=== PATIENT | female | born 1965 | race Caucasian/White ===

== ENCOUNTER 2017-09-14 07:58 | Emergency (ER) | payer MEDICAID ==
[~2017-09-14] VITALS: Ht 157.5 cm; Wt 103.0 kg
[~2017-09-14 07:58] MED LIST: BACDS PO; DIAZ5TAB PO; NAPR-56 PO; PANT20TA3 PO; PER10325T PO
[2017-09-14 08:33] LABS: BASOPHILS % (AUTO) 0.7 % (0-1); EOSINOPHILS # (AUTO) 0.2 X10'3 (0-0.9); EOSINOPHILS % (AUTO) 2.5 % (0-6); HEMATOCRIT 31.4 % (35.0-45.0); HEMOGLOBIN 10.4 g/dl (12.0-16.0); LYMPHOCYTES # (AUTO) 1.8 X10'3 (1.1-4.8); LYMPHOCYTES % (AUTO) 28.6 % (21-51); MEAN CORPUSCULAR HEMOGLOBIN 28.7 PG (27.0-31.0); MEAN PLATELET VOLUME 7.5 FL (7.4-10.4); MONOCYTES # (AUTO) 0.6 X10'3 (0-0.9); MONOCYTES % (AUTO) 8.8 % (2-12); NEUTROPHILS # (AUTO) 3.8 X10'3 (1.8-7.7); NEUTROPHILS % (AUTO) 59.4 % (42-75); PLATELET COUNT 226 X10'3 (140-440); RED BLOOD COUNT 3.61 X10'6 (4.20-5.60); RED CELL DISTRIBUTION WIDTH 21.6 % (11.5-14.5); WHITE BLOOD COUNT 6.4 X10'3 (4.5-11.0)
[2017-09-14 08:45] LABS: ANISOCYTOSIS 3+; HYPOCHROMASIA 1+; PLATELET ESTIMATE NORMAL; POLYCHROMASIA 1+
[2017-09-14 08:46] LABS: STOMATOCYTES 1+
[2017-09-14 08:49] LABS: CLARITY,URINE Clear (Clear); GLUCOSE, URINE Negative (Neg); KETONES,URINE Negative (Neg); LEUKOCYTE ESTERASE ,URINE Negative (Neg); NITRITES, URINE Negative (Neg); OCCULT BLOOD,URINE Negative (Neg); PROTEIN,URINE Negative (Neg)
[2017-09-14 08:53] LABS: COLOR,URINE STRAW (Yellow); UA COLLECTION TYPE CLN CATCH MIDSTREAM
[2017-09-14 08:58] LABS: ALANINE AMINOTRANSFERASE 70 U/L (12-78); ALBUMIN 3.1 G/DL (3.4-5.0); ALBUMIN/GLOBULIN RATIO 0.7 (1.1-1.5); ALKALINE PHOSPHATASE 134 IU/L (46-116); ANION GAP 12 (8-16); ASPARTATE AMINO TRANSFERASE 93 U/L (10-37); BILIRUBIN,TOTAL 0.5 MG/DL (0.1-1.0); BLOOD UREA NITROGEN 11 MG/DL (7-18); BUN/CREATININE RATIO 14.5 (6.6-38.0); CALCIUM 8.7 MG/DL (8.5-10.1); CHLORIDE 103 MMOL/L (99-107); CREATININE 0.76 MG/DL (0.40-0.90); GLUCOSE 184 MG/DL (70-104); MAGNESIUM 1.9 MG/DL (1.5-2.4); POTASSIUM 3.8 MMOL/L (3.5-5.1); SODIUM 140 MMOL/L (135-145); TOTAL CARBON DIOXIDE 24.8 MMOL/L (24-32); TOTAL PROTEIN 7.6 G/DL (6.4-8.2); eGFR 80 ML/MIN
[2017-09-14] MEDS ORDERED: POTA20TA19 PO (10:16)
[2017-09-14] MEDS ORDERED: FURO-149 PO (10:16)
[2017-09-14 10:29] VITALS: BP 148/88
== END 2017-09-14 10:33 | disposition home or self-care (01) ==
LOC: ER 07:59
DX: R60.0 Localized edema (principal); R06.02 Shortness of breath; I10 Essential (primary) hypertension; M19.90 Unspecified osteoarthritis, unspecified site; I49.9 Cardiac arrhythmia, unspecified; F17.210 Nicotine dependence, cigarettes, uncomplicated; Z90.710 Acquired absence of both cervix and uterus; Z86.14 Personal history of Methicillin resistant Staphylococcus aureus infection; Z88.8 Allergy status to other drugs, medicaments and biological substances; Z79.899 Other long term (current) drug therapy
CPT/HCPCS: 36415; 71045; 80053; 81003; 83735; 83880; 84484; 85025; 85610; 99285

== ENCOUNTER 2017-10-11 08:53 | Inpatient (IN) | payer MEDICAID ==
[~2017-10-11] VITALS: Ht 5200 cm; Wt 90.9 kg
[~2017-10-11 08:53] MED LIST changes: +FURO-149 PO; +POTA20TA19 PO
[2017-10-11] MEDS: normal saline 1000ML IV soln IVB ONE ×2 (09:15→11:12)
[2017-10-11] MEDS ORDERED: ondansetron/PF 4mg/2ml inj IV ONE (09:15)
[2017-10-11 09:45] LABS: BASOPHILS % (AUTO) 0.3 % (0-1); EOSINOPHILS # (AUTO) 0.1 X10'3 (0-0.9); EOSINOPHILS % (AUTO) 0.9 % (0-6); HEMATOCRIT 33.3 % (35.0-45.0); HEMOGLOBIN 10.8 g/dl (12.0-16.0); LYMPHOCYTES # (AUTO) 0.9 X10'3 (1.1-4.8); LYMPHOCYTES % (AUTO) 12.4 % (21-51); MEAN CORPUSCULAR HEMOGLOBIN 28.1 PG (27.0-31.0); MEAN CORPUSCULAR HGB CONC 32.5 % (33.0-36.5); MEAN CORPUSCULAR VOLUME 86.5 FL (78-98); MONOCYTES # (AUTO) 0.5 X10'3 (0-0.9); MONOCYTES % (AUTO) 6.6 % (2-12); NEUTROPHILS % (AUTO) 79.8 % (42-75); PLATELET COUNT 183 X10'3 (140-440); RED BLOOD COUNT 3.85 X10'6 (4.20-5.60); RED CELL DISTRIBUTION WIDTH 23.1 % (11.5-14.5); WHITE BLOOD COUNT 7.5 X10'3 (4.5-11.0)
[2017-10-11 09:49] LABS: CLARITY,URINE CLEAR (Clear); COLOR,URINE YELLOW (Yellow); GLUCOSE, URINE 100 mg/dl (Neg); KETONES,URINE NEGATIVE (Neg); LEUKOCYTE ESTERASE ,URINE NEGATIVE (Neg); NITRITES, URINE NEGATIVE (Neg); OCCULT BLOOD,URINE NEGATIVE (Neg); PROTEIN,URINE TRACE mg/dl (Neg)
[2017-10-11 09:53] LABS: UA COLLECTION TYPE CLN CATCH MIDSTREAM
[2017-10-11 09:55] LABS: BACTERIA,URINE 2+ /HPF (Neg); MUCUS STRANDS FEW /LPF (Neg); RBC,URINE NONE SEEN /HPF (0-2); SQUAMOUS EPITHELIAL CELL,UR MANY /LPF (FEW); WBC,URINE NONE SEEN /HPF (0-4)
[2017-10-11 10:00] LABS: PARTIAL THROMBOPLASTIN TIME 23 SECONDS (22-32); PROTHROMBIN TIME 10.5 SECONDS (9.0-12.0)
[2017-10-11 10:09] LABS: BETA HCG,QUANTITATIVE < 1.0 mIU/ml; LIPASE 653 U/L (73-393)
[2017-10-11] MEDS ORDERED: normal saline 1000ML IV soln IVB ONE (10:40)
[2017-10-11 12:12] LABS: ALANINE AMINOTRANSFERASE 73 U/L (12-78); ALBUMIN 3.3 G/DL (3.4-5.0); ALBUMIN/GLOBULIN RATIO 0.7 (1.1-1.5); ALKALINE PHOSPHATASE 165 IU/L (46-116); ANION GAP 23 (8-16); ASPARTATE AMINO TRANSFERASE 125 U/L (10-37); BILIRUBIN,TOTAL 0.5 MG/DL (0.1-1.0); BLOOD UREA NITROGEN 13 MG/DL (7-18); BUN/CREATININE RATIO 12.6 (6.6-38.0); CALCIUM 9.2 MG/DL (8.5-10.1); CHLORIDE 97 MMOL/L (99-107); CREATININE 1.03 MG/DL (0.40-0.90); GLUCOSE 349 MG/DL (70-104); POTASSIUM 3.1 MMOL/L (3.5-5.1); SODIUM 139 MMOL/L (135-145); TOTAL CARBON DIOXIDE 19.4 MMOL/L (24-32); TOTAL PROTEIN 7.9 G/DL (6.4-8.2); eGFR 56 ML/MIN
[2017-10-11] MEDS: POTASSIUM CL IV SCH ×2 (13:23→20:07)
[2017-10-11] MEDS: SODIUM CHLORIDE 0.45% IV SCH ×2 (13:23→20:07)
[2017-10-11] MEDS ORDERED: bisacodyl 10mg suppository rectal RC PRN (13:25)
[2017-10-11] MEDS ORDERED: magnesium hydroxide 30ml (MOM) UD suspension PO PRN (13:25)
[2017-10-11] MEDS ORDERED: potassium Cl 20 mEq SR tablet PO PRN (13:25)
[2017-10-11] MEDS ORDERED: magnesium 2GM in 50ml NS 50 ML IV PRN (13:25)
[2017-10-11] MEDS ORDERED: magnesium 4gm in 100ml NS 100 ML IV PRN (13:25)
[2017-10-11] MEDS ORDERED: potassium Cl 40MEQ/NS 500ml 500 ML IV PRN ×2 (13:25)
[2017-10-11] MEDS ORDERED: mag hydrox/Alum hydrox/simeth 30ml oral suspension PO PRN (13:25)
[2017-10-11] MEDS ORDERED: FURO40TA4 (14:00)
[2017-10-11] MEDS ORDERED: methadone 10mg tablet PO SCH ×2 (14:35→15:02)
[2017-10-11 14:40] LABS: URINE AMPHETAMINE SCREEN NEGATIVE (Neg); URINE BARBITUATE SCREEN NEGATIVE (Neg); URINE BENZODIAZEPINES SCREEN POSITIVE (Neg); URINE CANNABINOID SCREEN NEGATIVE (Neg); URINE COCAINE SCREEN NEGATIVE (Neg); URINE METHADONE SCREEN POSITIVE (Neg); URINE OPIATE SCREEN NEGATIVE (Neg); URINE PHENCYCLIDINE SCREEN NEGATIVE (Neg)
[2017-10-11] MEDS ORDERED: glucagon, human recombinant 1mg kit SUBCUT PRN (14:45)
[2017-10-11] MEDS ORDERED: insulin Lispro (HumaLOG) vial - multi-dose SQ SCH (14:45)
[2017-10-11] MEDS ORDERED: dextrose 50%-water 50ml dispensing syringe IV PRN ×2 (14:45)
[2017-10-11] MEDS ORDERED: dextrose ORAL solution 15 GM/59 ML bottle PO PRN ×2 (14:45)
[2017-10-11] MEDS ORDERED: MESSAGE TO PHARMACY PO ONE (14:45)
[2017-10-11 15:06] LABS: CREATINE KINASE 105 U/L (26-192); ETHANOL 0.291 GM/DL (0.0-0.010); MAGNESIUM 1.6 MG/DL (1.5-2.4); PHOSPHORUS 2.2 MG/DL (2.3-4.5)
[2017-10-11 15:46] LABS: HEMOGLOBIN A1C 7.4 % (4.5-6.2)
[2017-10-11] MEDS: pantoprazole 40 MG vial IV SCH (15:53)
[2017-10-11] MEDS: methadone 10mg tablet PO SCH (15:53)
[2017-10-11] MEDS ORDERED: potassium phosphate inj 15 MMOL in normal saline 250ml IV soln 245 ML IV ONE (15:55)
[2017-10-11 17:00] VITALS: BP 138/96
[2017-10-11] MEDS: LORazepam 1 MG tablet PO PRN ×2 (19:48→21:41)
[2017-10-11 20:00] VITALS: BP 130/58
[2017-10-11] MEDS: docusate sod 100mg capsule PO SCH (21:32)
[2017-10-11] MEDS: folic acid inj. 2 MG, thiamine inj. 100 MG, MVI, adult No.4 with vit. K 10 ML in dextro... IV SCH ×4 (21:32)
[2017-10-11] MEDS: ondansetron/PF 4mg/2ml inj IV PRN (21:41)
[2017-10-11 23:00] VITALS: BP 101/63
[2017-10-12] MEDS: acetaminophen 325mg tablet PO PRN (00:31)
[2017-10-12] MEDS: potassium Cl 20 mEq SR tablet PO PRN ×2 (02:45→20:33)
[2017-10-12] MEDS: SODIUM CHLORIDE 0.45% IV SCH ×2 (02:51→14:09)
[2017-10-12] MEDS: POTASSIUM CL IV SCH ×2 (02:51→14:09)
[2017-10-12 05:25] LABS: BASOPHILS % (AUTO) 0.8 % (0-1); EOSINOPHILS # (AUTO) 0.2 X10'3 (0-0.9); EOSINOPHILS % (AUTO) 4.1 % (0-6); HEMATOCRIT 28.8 % (35.0-45.0); HEMOGLOBIN 9.4 g/dl (12.0-16.0); LYMPHOCYTES # (AUTO) 2.1 X10'3 (1.1-4.8); LYMPHOCYTES % (AUTO) 41.8 % (21-51); MEAN CORPUSCULAR HEMOGLOBIN 27.7 PG (27.0-31.0); MEAN CORPUSCULAR HGB CONC 32.5 % (33.0-36.5); MEAN PLATELET VOLUME 6.9 FL (7.4-10.4); MONOCYTES # (AUTO) 0.4 X10'3 (0-0.9); MONOCYTES % (AUTO) 8.2 % (2-12); NEUTROPHILS # (AUTO) 2.3 X10'3 (1.8-7.7); NEUTROPHILS % (AUTO) 45.1 % (42-75); PLATELET COUNT 171 X10'3 (140-440); RED BLOOD COUNT 3.39 X10'6 (4.20-5.60); RED CELL DISTRIBUTION WIDTH 23.3 % (11.5-14.5)
[2017-10-12 06:18] LABS: ALANINE AMINOTRANSFERASE 60 U/L (12-78); ALBUMIN 2.8 G/DL (3.4-5.0); ALBUMIN/GLOBULIN RATIO 0.7 (1.1-1.5); ALKALINE PHOSPHATASE 146 IU/L (46-116); ANION GAP 14 (8-16); ASPARTATE AMINO TRANSFERASE 104 U/L (10-37); BILIRUBIN,TOTAL 0.4 MG/DL (0.1-1.0); BLOOD UREA NITROGEN 9 MG/DL (7-18); BUN/CREATININE RATIO 11.4 (6.6-38.0); CALCIUM 7.7 MG/DL (8.5-10.1); CHLORIDE 104 MMOL/L (99-107); CREATININE 0.79 MG/DL (0.40-0.90); GLUCOSE 133 MG/DL (70-104); LIPASE 433 U/L (73-393); MAGNESIUM 1.6 MG/DL (1.5-2.4); PHOSPHORUS 3.9 MG/DL (2.3-4.5); POTASSIUM 3.3 MMOL/L (3.5-5.1); SODIUM 143 MMOL/L (135-145); TOTAL CARBON DIOXIDE 25.4 MMOL/L (24-32); TOTAL PROTEIN 6.9 G/DL (6.4-8.2); eGFR 76 ML/MIN
[2017-10-12] MEDS: LORazepam 1 MG tablet PO PRN ×2 (07:36→18:56)
[2017-10-12] MEDS: ondansetron/PF 4mg/2ml inj IV PRN (07:41)
[2017-10-12] MEDS: folic acid inj. 2 MG, thiamine inj. 100 MG, MVI, adult No.4 with vit. K 10 ML in dextro... IV SCH ×4 (07:45)
[2017-10-12] MEDS: pantoprazole 40 MG vial IV SCH (07:45)
[2017-10-12] MEDS: K and/or MAG REPLACEMENT MC SCH (07:45)
[2017-10-12] MEDS: docusate sod 100mg capsule PO SCH ×2 (07:46→20:32)
[2017-10-12] MEDS: enoxaparin 40mg/0.4ml syringe SUBCUT SCH (07:46)
[2017-10-12 08:00] VITALS: BP_SYST 142; BP_SYST 145; BP_SYST 146; BP_DIAS 85; BP_DIAS 99
[2017-10-12] MEDS ORDERED: folic acid inj. 2 MG, thiamine inj. 100 MG, MVI, adult No.4 with vit. K 10 ML in dextro... IV SCH ×4 (08:00)
[2017-10-12 11:00] VITALS: BP 103/59
[2017-10-12] MEDS: methadone 10mg tablet PO SCH (14:33)
[2017-10-12 18:00] VITALS: BP 137/91
[2017-10-12] MEDS: zolpidem 5mg tablet PO PRN (20:33)
[2017-10-12] MEDS: LORazepam 2 mg/ml vial IV PRN (20:34)
[2017-10-12] MEDS: insulin glargine (Lantus) pen - multi-dose SQ SCH (21:55)
[2017-10-12 23:00] VITALS: BP_SYST 128; BP_SYST 133; BP_SYST 137; BP_SYST 155; BP_DIAS 100; BP_DIAS 112; BP_DIAS 84; BP_DIAS 91
[2017-10-13] MEDS: SODIUM CHLORIDE 0.45% IV SCH ×4 (00:06→19:36)
[2017-10-13] MEDS: POTASSIUM CL IV SCH ×4 (00:06→19:36)
[2017-10-13] MEDS: LORazepam 2 mg/ml vial IV PRN (00:06)
[2017-10-13] MEDS ORDERED: HYDROmorphone 2mg tablet PO PRN (02:40)
[2017-10-13] MEDS: LORazepam 1 MG tablet PO PRN ×4 (03:18→23:47)
[2017-10-13] MEDS: cloNIDine 0.1 mg tablet PO PRN (03:22)
[2017-10-13 05:20] LABS: BASOPHILS # (AUTO) 0.1 X10'3 (0-0.2); EOSINOPHILS # (AUTO) 0.2 X10'3 (0-0.9); EOSINOPHILS % (AUTO) 3.2 % (0-6); HEMATOCRIT 27.4 % (35.0-45.0); HEMOGLOBIN 8.9 g/dl (12.0-16.0); LYMPHOCYTES # (AUTO) 1.2 X10'3 (1.1-4.8); LYMPHOCYTES % (AUTO) 20.7 % (21-51); MEAN CORPUSCULAR HEMOGLOBIN 27.8 PG (27.0-31.0); MEAN CORPUSCULAR HGB CONC 32.4 % (33.0-36.5); MEAN CORPUSCULAR VOLUME 85.8 FL (78-98); MEAN PLATELET VOLUME 7.3 FL (7.4-10.4); MONOCYTES # (AUTO) 0.4 X10'3 (0-0.9); MONOCYTES % (AUTO) 6.1 % (2-12); NEUTROPHILS # (AUTO) 4.1 X10'3 (1.8-7.7); PLATELET COUNT 109 X10'3 (140-440); RED BLOOD COUNT 3.19 X10'6 (4.20-5.60); RED CELL DISTRIBUTION WIDTH 22.8 % (11.5-14.5); WHITE BLOOD COUNT 5.9 X10'3 (4.5-11.0)
[2017-10-13 05:41] LABS: ALANINE AMINOTRANSFERASE 59 U/L (12-78); ALBUMIN 2.8 G/DL (3.4-5.0); ALBUMIN/GLOBULIN RATIO 0.7 (1.1-1.5); ALKALINE PHOSPHATASE 149 IU/L (46-116); ANION GAP 12 (8-16); ASPARTATE AMINO TRANSFERASE 109 U/L (10-37); BILIRUBIN,TOTAL 0.6 MG/DL (0.1-1.0); BLOOD UREA NITROGEN 8 MG/DL (7-18); BUN/CREATININE RATIO 10.4 (6.6-38.0); CALCIUM 7.6 MG/DL (8.5-10.1); CHLORIDE 105 MMOL/L (99-107); CREATININE 0.77 MG/DL (0.40-0.90); GLUCOSE 125 MG/DL (70-104); LIPASE 460 U/L (73-393); MAGNESIUM 1.3 MG/DL (1.5-2.4); PHOSPHORUS 2.4 MG/DL (2.3-4.5); SODIUM 141 MMOL/L (135-145); TOTAL CARBON DIOXIDE 24.1 MMOL/L (24-32); TOTAL PROTEIN 6.8 G/DL (6.4-8.2); eGFR 78 ML/MIN
[2017-10-13] MEDS: pantoprazole 40 MG vial IV SCH (07:38)
[2017-10-13] MEDS: magnesium Cl slow-release 64mg tablet PO PRN (07:38)
[2017-10-13] MEDS: docusate sod 100mg capsule PO SCH ×2 (07:39→19:42)
[2017-10-13] MEDS: K and/or MAG REPLACEMENT MC SCH (07:39)
[2017-10-13] MEDS: enoxaparin 40mg/0.4ml syringe SUBCUT SCH (07:42)
[2017-10-13 08:00] VITALS: BP_SYST 114; BP_SYST 141; BP_SYST 149; BP_DIAS 106; BP_DIAS 82; BP_DIAS 99
[2017-10-13] MEDS: folic acid inj. 2 MG, thiamine inj. 100 MG, MVI, adult No.4 with vit. K 10 ML in dextro... IV SCH ×4 (08:16)
[2017-10-13 11:00] VITALS: BP 119/77
[2017-10-13] MEDS: methadone 10mg tablet PO SCH (14:05)
[2017-10-13 18:30] VITALS: BP 153/99
[2017-10-13] MEDS: zolpidem 5mg tablet PO PRN (23:47)
[2017-10-13] MEDS: acetaminophen 325mg tablet PO PRN (23:47)
[2017-10-13] MEDS: insulin glargine (Lantus) pen - multi-dose SQ SCH (23:51)
[2017-10-14] VITALS: BP 130/93
[2017-10-14 06:16] LABS: BASOPHILS % (AUTO) 0.6 % (0-1); EOSINOPHILS # (AUTO) 0.2 X10'3 (0-0.9); EOSINOPHILS % (AUTO) 4.2 % (0-6); HEMATOCRIT 29.1 % (35.0-45.0); HEMOGLOBIN 9.6 g/dl (12.0-16.0); LYMPHOCYTES # (AUTO) 1.5 X10'3 (1.1-4.8); LYMPHOCYTES % (AUTO) 32.6 % (21-51); MEAN CORPUSCULAR HEMOGLOBIN 28.2 PG (27.0-31.0); MEAN CORPUSCULAR HGB CONC 32.8 % (33.0-36.5); MEAN CORPUSCULAR VOLUME 85.8 FL (78-98); MEAN PLATELET VOLUME 6.9 FL (7.4-10.4); MONOCYTES # (AUTO) 0.3 X10'3 (0-0.9); MONOCYTES % (AUTO) 6.5 % (2-12); NEUTROPHILS # (AUTO) 2.6 X10'3 (1.8-7.7); NEUTROPHILS % (AUTO) 56.1 % (42-75); PLATELET COUNT 132 X10'3 (140-440); RED BLOOD COUNT 3.39 X10'6 (4.20-5.60); RED CELL DISTRIBUTION WIDTH 22.9 % (11.5-14.5); WHITE BLOOD COUNT 4.6 X10'3 (4.5-11.0)
[2017-10-14 06:35] LABS: ALANINE AMINOTRANSFERASE 64 U/L (12-78); ALBUMIN 2.9 G/DL (3.4-5.0); ALBUMIN/GLOBULIN RATIO 0.7 (1.1-1.5); ALKALINE PHOSPHATASE 174 IU/L (46-116); ANION GAP 12 (8-16); ASPARTATE AMINO TRANSFERASE 124 U/L (10-37); BILIRUBIN,TOTAL 0.7 MG/DL (0.1-1.0); BLOOD UREA NITROGEN 6 MG/DL (7-18); CHLORIDE 105 MMOL/L (99-107); CREATININE 0.86 MG/DL (0.40-0.90); GLUCOSE 130 MG/DL (70-104); MAGNESIUM 1.5 MG/DL (1.5-2.4); PHOSPHORUS 2.5 MG/DL (2.3-4.5); POTASSIUM 3.7 MMOL/L (3.5-5.1); SODIUM 140 MMOL/L (135-145); TOTAL CARBON DIOXIDE 23.4 MMOL/L (24-32); TOTAL PROTEIN 7.1 G/DL (6.4-8.2); eGFR 69 ML/MIN
[2017-10-14 08:00] VITALS: BP 134/89
[2017-10-14] MEDS: K and/or MAG REPLACEMENT MC SCH (08:00)
[2017-10-14] MEDS: folic acid 1mg tablet PO SCH (08:25)
[2017-10-14] MEDS: cloNIDine 0.1 mg tablet PO PRN ×2 (08:26→19:12)
[2017-10-14] MEDS: docusate sod 100mg capsule PO SCH ×2 (08:26→20:11)
[2017-10-14] MEDS: thiamine 100mg tablet PO SCH (08:26)
[2017-10-14] MEDS: enoxaparin 40mg/0.4ml syringe SUBCUT SCH (08:28)
[2017-10-14] MEDS: pantoprazole 40mg Tablet.DR PO SCH (08:29)
[2017-10-14] MEDS: LORazepam 1 MG tablet PO PRN ×3 (09:47→23:42)
[2017-10-14] MEDS: magnesium Cl slow-release 64mg tablet PO PRN (10:02)
[2017-10-14] MEDS ORDERED: METH-603 PO (10:29)
[2017-10-14 12:02] VITALS: BP 168/104
[2017-10-14] MEDS: methadone 10mg tablet PO SCH (14:03)
[2017-10-14] MEDS: POTASSIUM CL IV SCH (15:04)
[2017-10-14] MEDS: SODIUM CHLORIDE 0.45% IV SCH (15:04)
[2017-10-14 18:30] VITALS: BP_SYST 138; BP_SYST 139; BP_SYST 142; BP_DIAS 106; BP_DIAS 109; BP_DIAS 99
[2017-10-14] MEDS: zolpidem 5mg tablet PO PRN (21:34)
[2017-10-14] MEDS: insulin glargine (Lantus) pen - multi-dose SQ SCH (21:38)
[2017-10-15] MEDS: SODIUM CHLORIDE 0.45% IV SCH (04:50)
[2017-10-15] MEDS: POTASSIUM CL IV SCH (04:50)
[2017-10-15 06:15] LABS: BASOPHILS % (AUTO) 0.4 % (0-1); EOSINOPHILS # (AUTO) 0.2 X10'3 (0-0.9); EOSINOPHILS % (AUTO) 3.7 % (0-6); HEMOGLOBIN 9.2 g/dl (12.0-16.0); LYMPHOCYTES # (AUTO) 1.1 X10'3 (1.1-4.8); LYMPHOCYTES % (AUTO) 23.8 % (21-51); MEAN CORPUSCULAR HEMOGLOBIN 28.3 PG (27.0-31.0); MEAN CORPUSCULAR HGB CONC 32.9 % (33.0-36.5); MEAN PLATELET VOLUME 6.9 FL (7.4-10.4); MONOCYTES # (AUTO) 0.3 X10'3 (0-0.9); MONOCYTES % (AUTO) 6.3 % (2-12); NEUTROPHILS # (AUTO) 3.2 X10'3 (1.8-7.7); NEUTROPHILS % (AUTO) 65.8 % (42-75); PLATELET COUNT 127 X10'3 (140-440); RED BLOOD COUNT 3.25 X10'6 (4.20-5.60); RED CELL DISTRIBUTION WIDTH 23.2 % (11.5-14.5); WHITE BLOOD COUNT 4.8 X10'3 (4.5-11.0)
[2017-10-15 06:48] LABS: ALANINE AMINOTRANSFERASE 69 U/L (12-78); ALBUMIN 2.8 G/DL (3.4-5.0); ALBUMIN/GLOBULIN RATIO 0.7 (1.1-1.5); ALKALINE PHOSPHATASE 187 IU/L (46-116); ANION GAP 9 (8-16); ASPARTATE AMINO TRANSFERASE 137 U/L (10-37); BILIRUBIN,TOTAL 0.8 MG/DL (0.1-1.0); BLOOD UREA NITROGEN 7 MG/DL (7-18); BUN/CREATININE RATIO 8.1 (6.6-38.0); CALCIUM 8.2 MG/DL (8.5-10.1); CHLORIDE 104 MMOL/L (99-107); CREATININE 0.86 MG/DL (0.40-0.90); GLUCOSE 116 MG/DL (70-104); MAGNESIUM 1.5 MG/DL (1.5-2.4); PHOSPHORUS 2.5 MG/DL (2.3-4.5); POTASSIUM 3.9 MMOL/L (3.5-5.1); SODIUM 139 MMOL/L (135-145); TOTAL CARBON DIOXIDE 25.7 MMOL/L (24-32); TOTAL PROTEIN 6.8 G/DL (6.4-8.2); eGFR 69 ML/MIN
[2017-10-15] MEDS ORDERED: metFORMIN 500mg tablet PO SCH (07:30)
[2017-10-15] MEDS: K and/or MAG REPLACEMENT MC SCH (08:00)
[2017-10-15] MEDS ORDERED: lisinopril 10 MG tablet PO SCH (08:00)
[2017-10-15 08:33] VITALS: BP 145/105
[2017-10-15] MEDS: enoxaparin 40mg/0.4ml syringe SUBCUT SCH (10:14)
[2017-10-15] MEDS: docusate sod 100mg capsule PO SCH (10:14)
[2017-10-15] MEDS: thiamine 100mg tablet PO SCH (10:15)
[2017-10-15] MEDS: folic acid 1mg tablet PO SCH (10:15)
[2017-10-15] MEDS: pantoprazole 40mg Tablet.DR PO SCH (10:15)
[2017-10-15] MEDS ORDERED: ATI0.5T PO (11:14)
[2017-10-15] MEDS ORDERED: METF500T4 PO (11:14)
[2017-10-15] MEDS ORDERED: THI100T PO (11:14)
[2017-10-15] MEDS ORDERED: MULT-271 PO (11:14)
[2017-10-15] MEDS ORDERED: FOLI1TAB16 PO (11:14)
[2017-10-15] MEDS ORDERED: ASPI81TA52 PO (11:17)
[2017-10-15 11:53] VITALS: BP 170/107
[2017-10-15] MEDS ORDERED: LISI10TA4 PO (12:00)
[2017-10-15] MEDS: methadone 10mg tablet PO SCH (13:47)
[2017-10-17] MEDS ORDERED: LORazepam 0.5 MG tablet PO PRN (19:20)
== END 2017-10-15 16:00 | disposition home or self-care (01) | DRG 282 ==
LOC: ER 08:54 → ED HOLD 13:23 → EDBEDREQ 16:05 → MED 3N 17:15
PROVIDERS: ADMIT Internal Medicine; ATTEND Family Medicine
DX: K85.20 Alcohol induced acute pancreatitis without necrosis or infection (principal); E87.2 Acidosis; K76.0 Fatty (change of) liver, not elsewhere classified; E87.6 Hypokalemia; F10.239 Alcohol dependence with withdrawal, unspecified; F10.229 Alcohol dependence with intoxication, unspecified; E86.0 Dehydration; B19.20 Unspecified viral hepatitis C without hepatic coma; E83.42 Hypomagnesemia; E11.65 Type 2 diabetes mellitus with hyperglycemia; Y90.1 Blood alcohol level of 20-39 mg/100 ml; F41.9 Anxiety disorder, unspecified; I10 Essential (primary) hypertension; M06.9 Rheumatoid arthritis, unspecified; Z85.72 Personal history of non-Hodgkin lymphomas; Z90.710 Acquired absence of both cervix and uterus; Z87.891 Personal history of nicotine dependence; Z98.82 Breast implant status; Z88.8 Allergy status to other drugs, medicaments and biological substances; Z71.41 Alcohol abuse counseling and surveillance of alcoholic
CPT/HCPCS: 36415; 71045; 74176; 76700; 80053; 80305; 80320; 81001; 82009; 82140; 82550; 82948; 83036; 83605; 83690; 83735; 84100; 84702; 85025; 85610; 85730; 87040; 87070; 93005; 97110; 97116; 97161; 99285; A6258; C9113; J1650; J1815; J2060; J2405; J3411; J3480; J3490; J7030; J7060

== ENCOUNTER 2017-10-25 09:58 | Emergency (ER) | payer MEDICAID ==
[~2017-10-25] VITALS: Ht 157.5 cm; Wt 93.6 kg
[~2017-10-25 09:58] MED LIST changes: +ASPI81TA52 PO; +ATI0.5T PO; -BACDS PO; -DIAZ5TAB PO; +FOLI1TAB16 PO; +LISI10TA4 PO; +METF500T6 PO; +METH-603 PO; +MULT-271 PO; -PER10325T PO; -POTA20TA19 PO; +THI100T PO
[2017-10-25 10:57] LABS: CLARITY,URINE SLIGHTLY CLOUDY (Clear); COLOR,URINE YELLOW (Yellow); GLUCOSE, URINE NEGATIVE (Neg); KETONES,URINE NEGATIVE (Neg); LEUKOCYTE ESTERASE ,URINE NEGATIVE (Neg); NITRITES, URINE NEGATIVE (Neg); OCCULT BLOOD,URINE NEGATIVE (Neg); PROTEIN,URINE NEGATIVE (Neg); UROBILINOGEN,URINE 0.2 E.U/dL (0.2-1.0)
[2017-10-25 10:59] LABS: UA COLLECTION TYPE CLN CATCH MIDSTREAM
[2017-10-25 11:02] LABS: BACTERIA,URINE 4+ /HPF (Neg); MUCUS STRANDS FEW /LPF (Neg); RBC,URINE NONE SEEN /HPF (0-2); SQUAMOUS EPITHELIAL CELL,UR NONE SEEN /LPF (FEW); WBC,URINE 0-4 /HPF (0-4)
[2017-10-25 11:23] LABS: BASOPHILS % (AUTO) 0.3 % (0-1); EOSINOPHILS # (AUTO) 0.1 X10'3 (0-0.9); HEMATOCRIT 32.1 % (35.0-45.0); HEMOGLOBIN 10.5 g/dl (12.0-16.0); LYMPHOCYTES # (AUTO) 2.8 X10'3 (1.1-4.8); LYMPHOCYTES % (AUTO) 37.4 % (21-51); MEAN CORPUSCULAR HEMOGLOBIN 28.1 PG (27.0-31.0); MEAN CORPUSCULAR HGB CONC 32.6 % (33.0-36.5); MEAN CORPUSCULAR VOLUME 86.4 FL (78-98); MEAN PLATELET VOLUME 7.6 FL (7.4-10.4); MONOCYTES # (AUTO) 0.6 X10'3 (0-0.9); MONOCYTES % (AUTO) 8.3 % (2-12); NEUTROPHILS # (AUTO) 3.9 X10'3 (1.8-7.7); PLATELET COUNT 266 X10'3 (140-440); RED BLOOD COUNT 3.72 X10'6 (4.20-5.60); RED CELL DISTRIBUTION WIDTH 24.8 % (11.5-14.5); WHITE BLOOD COUNT 7.4 X10'3 (4.5-11.0)
[2017-10-25 11:33] LABS: PARTIAL THROMBOPLASTIN TIME 23 SECONDS (22-32); PROTHROMBIN TIME 10.2 SECONDS (9.0-12.0)
[2017-10-25 11:37] LABS: ALANINE AMINOTRANSFERASE 95 U/L (12-78); ALBUMIN 3.2 G/DL (3.4-5.0); ALBUMIN/GLOBULIN RATIO 0.7 (1.1-1.5); ALKALINE PHOSPHATASE 180 IU/L (46-116); ANION GAP 18 (8-16); ASPARTATE AMINO TRANSFERASE 214 U/L (10-37); BILIRUBIN,TOTAL 0.5 MG/DL (0.1-1.0); BLOOD UREA NITROGEN 9 MG/DL (7-18); BUN/CREATININE RATIO 8.5 (6.6-38.0); CALCIUM 9.1 MG/DL (8.5-10.1); CHLORIDE 101 MMOL/L (99-107); CREATININE 1.06 MG/DL (0.40-0.90); GLUCOSE 206 MG/DL (70-104); SODIUM 139 MMOL/L (135-145); TOTAL CARBON DIOXIDE 20.1 MMOL/L (24-32); TOTAL PROTEIN 7.9 G/DL (6.4-8.2); eGFR 54 ML/MIN
[2017-10-25 11:38] LABS: POTASSIUM 4.1 MMOL/L (3.5-5.1)
[2017-10-25] MEDS ORDERED: morphine 4 MG/ML inj SYRINge IV PRN (12:10)
[2017-10-25] MEDS ORDERED: normal saline 1000ML IV soln IV ONE (12:10)
[2017-10-25] MEDS ORDERED: ondansetron/PF 4mg/2ml inj IV ONE (12:10)
[2017-10-25] MEDS ORDERED: ketorolac trometh. 30mg/ml inj. IV ONE (12:55)
[2017-10-25 13:12] LABS: LIPASE 536 U/L (73-393)
[2017-10-25] MEDS ORDERED: ONDA8TAB9 PO (13:54)
[2017-10-25] MEDS ORDERED: CHLO25CA10 PO (13:54)
[2017-10-25 14:29] VITALS: BP 135/94
== END 2017-10-25 14:31 | disposition home or self-care (01) ==
LOC: ER 09:58
DX: K85.20 Alcohol induced acute pancreatitis without necrosis or infection (principal); I49.9 Cardiac arrhythmia, unspecified; I10 Essential (primary) hypertension; M06.9 Rheumatoid arthritis, unspecified; Z86.14 Personal history of Methicillin resistant Staphylococcus aureus infection; Z90.710 Acquired absence of both cervix and uterus; Z86.19 Personal history of other infectious and parasitic diseases; Z88.8 Allergy status to other drugs, medicaments and biological substances; Z79.82 Long term (current) use of aspirin; Z79.84 Long term (current) use of oral hypoglycemic drugs; Z79.899 Other long term (current) drug therapy
CPT/HCPCS: 36415; 71045; 80053; 81001; 82948; 83605; 83690; 84145; 85025; 85610; 85730; 87040; 87077; 87088; 87186; 93005; 96361; 96374; 96375; 99285; J1885; J2405; J7030; A4620

== ENCOUNTER 2017-12-17 21:53 | Inpatient (IN) | payer MEDICAID ==
[~2017-12-17] VITALS: Ht 157.5 cm; Wt 100.0 kg
[~2017-12-17 21:53] MED LIST changes: +CHLO25CA10 PO; -FURO-149 PO; -MULT-271 PO; +ONDA8TAB9 PO
[2017-12-17 22:25] LABS: BASOPHILS % (AUTO) 0.1 % (0-1); EOSINOPHILS # (AUTO) 0.1 X10'3 (0-0.9); EOSINOPHILS % (AUTO) 1.6 % (0-6); HEMATOCRIT 27.2 % (35.0-45.0); HEMOGLOBIN 9.3 g/dl (12.0-16.0); LYMPHOCYTES # (AUTO) 1.1 X10'3 (1.1-4.8); LYMPHOCYTES % (AUTO) 16.4 % (21-51); MEAN CORPUSCULAR HEMOGLOBIN 31.1 PG (27.0-31.0); MEAN CORPUSCULAR VOLUME 91.7 FL (78-98); MEAN PLATELET VOLUME 7.6 FL (7.4-10.4); MONOCYTES # (AUTO) 0.6 X10'3 (0-0.9); MONOCYTES % (AUTO) 8.9 % (2-12); NEUTROPHILS # (AUTO) 4.7 X10'3 (1.8-7.7); PLATELET COUNT 167 X10'3 (140-440); RED BLOOD COUNT 2.97 X10'6 (4.20-5.60); RED CELL DISTRIBUTION WIDTH 23.2 % (11.5-14.5); WHITE BLOOD COUNT 6.4 X10'3 (4.5-11.0)
[2017-12-17 22:33] LABS: PROTHROMBIN TIME 10.7 SECONDS (9.0-12.0)
[2017-12-17 22:41] LABS: ALANINE AMINOTRANSFERASE 78 U/L (12-78); ALBUMIN 3.4 G/DL (3.4-5.0); ALBUMIN/GLOBULIN RATIO 0.7 (1.1-1.5); ALKALINE PHOSPHATASE 159 IU/L (46-116); AMYLASE 56 U/L (25-115); ANION GAP 18 (8-16); ASPARTATE AMINO TRANSFERASE 108 U/L (10-37); BILIRUBIN,TOTAL 1.2 MG/DL (0.1-1.0); BLOOD UREA NITROGEN 34 MG/DL (7-18); BUN/CREATININE RATIO 9.2 (6.6-38.0); CHLORIDE 80 MMOL/L (99-107); CREATININE 3.68 MG/DL (0.40-0.90); GLUCOSE 138 MG/DL (70-104); LIPASE 1036 U/L (73-393); TOTAL CARBON DIOXIDE 22.5 MMOL/L (24-32); eGFR 13 ML/MIN
[2017-12-17 22:42] LABS: URINE HCG NEGATIVE (NEG)
[2017-12-17 22:48] LABS: SODIUM 120 MMOL/L (135-145)
[2017-12-17 22:50] LABS: CLARITY,URINE CLEAR (Clear); COLOR,URINE YELLOW (Yellow); GLUCOSE, URINE NEGATIVE (Neg); KETONES,URINE NEGATIVE (Neg); LEUKOCYTE ESTERASE ,URINE NEGATIVE (Neg); NITRITES, URINE NEGATIVE (Neg); OCCULT BLOOD,URINE TRACE-LYSED (Neg); PH,URINE 5.5 (4.8-8.0); PROTEIN,URINE NEGATIVE (Neg); UROBILINOGEN,URINE 0.2 E.U/dL (0.2-1.0)
[2017-12-17 23:02] LABS: UA COLLECTION TYPE CLN CATCH MIDSTREAM
[2017-12-17 23:04] LABS: BACTERIA,URINE 3+ /HPF (Neg); SQUAMOUS EPITHELIAL CELL,UR MODERATE /LPF (FEW)
[2017-12-17] MEDS ORDERED: HYDROmorphone 1 mg/ml syringe IV ONE (23:55)
[2017-12-17] MEDS ORDERED: normal saline 1000ml 1,000 ML IV ONE (23:55)
[2017-12-17] MEDS ORDERED: ondansetron/PF 4mg/2ml inj IV ONE (23:55)
[2017-12-18] MEDS ORDERED: LORazepam 1 MG tablet PO ONE (00:50)
[2017-12-18] MEDS ORDERED: ASPIRIN (02:42)
[2017-12-18] MEDS ORDERED: ESCITALOPRAM 10 MG (02:42)
[2017-12-18] MEDS ORDERED: Lisinopril 10 Mg Tablet (02:42)
[2017-12-18] MEDS ORDERED: FUROSEMIDE 40 MG (02:42)
[2017-12-18] MEDS ORDERED: METFORMIN HCL 500 MG (02:42)
[2017-12-18] MEDS ORDERED: HYDROmorphone 1 mg/ml syringe IV ONE (03:00)
[2017-12-18] MEDS ORDERED: FOLI0.4T2 PO (04:04)
[2017-12-18] MEDS ORDERED: METHADONE PO (04:43)
[2017-12-18] MEDS ORDERED: ondansetron/PF 4mg/2ml inj IV PRN (05:30)
[2017-12-18] MEDS ORDERED: morphine 4 MG/ML inj SYRINge IV PRN (05:30)
[2017-12-18] MEDS ORDERED: naloxone 0.4 mg/ml inj IV PRN (05:35)
[2017-12-18] MEDS ORDERED: thiamine inj. 100 MG in normal saline 100ml IV soln 100 ML IV ONE (06:45)
[2017-12-18 07:30] VITALS: BP 116/57
[2017-12-18] MEDS ORDERED: FURO-149 PO (07:30)
[2017-12-18] MEDS ORDERED: METF500T PO (07:30)
[2017-12-18] MEDS ORDERED: ASPI-611 PO (07:30)
[2017-12-18] MEDS ORDERED: LISI10TA4 PO (07:30)
[2017-12-18] MEDS: normal saline 1000ml 1,000 ML IV SCH ×3 (07:37→16:46)
[2017-12-18] MEDS: HYDROmorphone/NS 1 mg/ml CADD 50 ML IV SCH ×9 (07:42→23:00)
[2017-12-18] MEDS: heparin, porcine 5000 units/ml vial SQ SCH ×2 (07:51→19:10)
[2017-12-18] MEDS: LORazepam 2 mg/ml vial IV PRN ×3 (07:58→19:44)
[2017-12-18 09:06] LABS: BASOPHILS % (AUTO) 0.6 % (0-1); EOSINOPHILS # (AUTO) 0.1 X10'3 (0-0.9); EOSINOPHILS % (AUTO) 1.9 % (0-6); HEMATOCRIT 26.5 % (35.0-45.0); HEMOGLOBIN 8.8 g/dl (12.0-16.0); LYMPHOCYTES % (AUTO) 14.9 % (21-51); MEAN CORPUSCULAR HEMOGLOBIN 30.8 PG (27.0-31.0); MEAN CORPUSCULAR HGB CONC 33.1 % (33.0-36.5); MEAN CORPUSCULAR VOLUME 93.2 FL (78-98); MEAN PLATELET VOLUME 7.8 FL (7.4-10.4); MONOCYTES # (AUTO) 0.5 X10'3 (0-0.9); MONOCYTES % (AUTO) 7.3 % (2-12); NEUTROPHILS % (AUTO) 75.3 % (42-75); PLATELET COUNT 149 X10'3 (140-440); RED BLOOD COUNT 2.84 X10'6 (4.20-5.60); WHITE BLOOD COUNT 6.6 X10'3 (4.5-11.0)
[2017-12-18 09:18] LABS: ALANINE AMINOTRANSFERASE 69 U/L (12-78); ALBUMIN 3.1 G/DL (3.4-5.0); ALBUMIN/GLOBULIN RATIO 0.7 (1.1-1.5); ALKALINE PHOSPHATASE 144 IU/L (46-116); ANION GAP 12 (8-16); ASPARTATE AMINO TRANSFERASE 85 U/L (10-37); BILIRUBIN,TOTAL 1.3 MG/DL (0.1-1.0); BLOOD UREA NITROGEN 37 MG/DL (7-18); BUN/CREATININE RATIO 13.5 (6.6-38.0); CALCIUM 7.8 MG/DL (8.5-10.1); CHLORIDE 84 MMOL/L (99-107); CREATININE 2.75 MG/DL (0.40-0.90); GLUCOSE 123 MG/DL (70-104); POTASSIUM 3.6 MMOL/L (3.5-5.1); SODIUM 122 MMOL/L (135-145); TOTAL CARBON DIOXIDE 25.7 MMOL/L (24-32); TOTAL PROTEIN 7.3 G/DL (6.4-8.2); eGFR 18 ML/MIN
[2017-12-18 09:27] LABS: ANISOCYTOSIS 1+; PLATELET ESTIMATE NORMAL
[2017-12-18 09:28] LABS: POLYCHROMASIA 1+
[2017-12-18] MEDS ORDERED: METH10OR11 PO (10:54)
[2017-12-18 11:58] VITALS: BP 95/63
[2017-12-18] MEDS ORDERED: MESSAGE TO PHARMACY PO ONE (13:10)
[2017-12-18] MEDS ORDERED: dextrose ORAL solution 15 GM/59 ML bottle PO PRN ×2 (13:10)
[2017-12-18] MEDS ORDERED: insulin Lispro (HumaLOG) vial - multi-dose SQ SCH (13:10)
[2017-12-18] MEDS ORDERED: glucagon, human recombinant 1mg kit SUBCUT PRN (13:10)
[2017-12-18] MEDS ORDERED: dextrose 50%-water 50ml dispensing syringe IV PRN ×2 (13:10)
[2017-12-18 20:00] VITALS: BP 109/57
[2017-12-18] MEDS: insulin glargine (Lantus) pen - multi-dose SQ SCH (21:00)
[2017-12-19] VITALS: BP 122/71
[2017-12-19] MEDS: LORazepam 2 mg/ml vial IV PRN ×6 (00:59→23:16)
[2017-12-19] MEDS: HYDROmorphone/NS 1 mg/ml CADD 50 ML IV SCH ×12 (01:00→23:00)
[2017-12-19] MEDS: normal saline 1000ml 1,000 ML IV SCH ×3 (01:30→19:52)
[2017-12-19 05:32] LABS: BASOPHILS % (AUTO) 0.4 % (0-1); EOSINOPHILS # (AUTO) 0.1 X10'3 (0-0.9); EOSINOPHILS % (AUTO) 2.3 % (0-6); HEMATOCRIT 27.2 % (35.0-45.0); HEMOGLOBIN 9.1 g/dl (12.0-16.0); LYMPHOCYTES # (AUTO) 1.2 X10'3 (1.1-4.8); LYMPHOCYTES % (AUTO) 24.2 % (21-51); MEAN CORPUSCULAR HGB CONC 33.3 % (33.0-36.5); MEAN PLATELET VOLUME 8.1 FL (7.4-10.4); MONOCYTES # (AUTO) 0.6 X10'3 (0-0.9); MONOCYTES % (AUTO) 12.9 % (2-12); NEUTROPHILS # (AUTO) 2.9 X10'3 (1.8-7.7); NEUTROPHILS % (AUTO) 60.2 % (42-75); PLATELET COUNT 136 X10'3 (140-440); RED BLOOD COUNT 2.92 X10'6 (4.20-5.60); RED CELL DISTRIBUTION WIDTH 23.5 % (11.5-14.5); WHITE BLOOD COUNT 4.8 X10'3 (4.5-11.0)
[2017-12-19 05:37] LABS: PROTHROMBIN TIME 10.7 SECONDS (9.0-12.0)
[2017-12-19 05:43] LABS: ALANINE AMINOTRANSFERASE 62 U/L (12-78); ALBUMIN/GLOBULIN RATIO 0.7 (1.1-1.5); ALKALINE PHOSPHATASE 140 IU/L (46-116); AMYLASE 58 U/L (25-115); ANION GAP 8 (8-16); ASPARTATE AMINO TRANSFERASE 69 U/L (10-37); BLOOD UREA NITROGEN 27 MG/DL (7-18); BUN/CREATININE RATIO 18.2 (6.6-38.0); CALCIUM 7.9 MG/DL (8.5-10.1); CHLORIDE 96 MMOL/L (99-107); CREATININE 1.48 MG/DL (0.40-0.90); GLUCOSE 122 MG/DL (70-104); LIPASE 1071 U/L (73-393); MAGNESIUM 1.5 MG/DL (1.5-2.4); PHOSPHORUS 1.7 MG/DL (2.3-4.5); SODIUM 133 MMOL/L (135-145); TOTAL CARBON DIOXIDE 28.8 MMOL/L (24-32); TOTAL PROTEIN 7.2 G/DL (6.4-8.2); eGFR 37 ML/MIN
[2017-12-19 06:15] LABS: PLATELET ESTIMATE DECREASED
[2017-12-19 06:16] LABS: ANISOCYTOSIS 3+
[2017-12-19 07:00] VITALS: BP 109/67
[2017-12-19] MEDS: heparin, porcine 5000 units/ml vial SQ SCH ×2 (08:17→19:51)
[2017-12-19 11:00] VITALS: BP 112/79
[2017-12-19 19:00] VITALS: BP 127/78
[2017-12-19] MEDS: insulin glargine (Lantus) pen - multi-dose SQ SCH (21:00)
[2017-12-20] VITALS: BP 124/89
[2017-12-20] MEDS: HYDROmorphone/NS 1 mg/ml CADD 50 ML IV SCH ×8 (01:00→15:00)
[2017-12-20] MEDS: LORazepam 2 mg/ml vial IV PRN ×6 (02:35→19:18)
[2017-12-20] MEDS: normal saline 1000ml 1,000 ML IV SCH ×2 (05:13→17:50)
[2017-12-20 05:45] LABS: PROTHROMBIN TIME 10.6 SECONDS (9.0-12.0)
[2017-12-20 06:05] LABS: ALANINE AMINOTRANSFERASE 61 U/L (12-78); ALBUMIN 2.9 G/DL (3.4-5.0); ALBUMIN/GLOBULIN RATIO 0.7 (1.1-1.5); ALKALINE PHOSPHATASE 143 IU/L (46-116); AMYLASE 57 U/L (25-115); ANION GAP 10 (8-16); ASPARTATE AMINO TRANSFERASE 89 U/L (10-37); BILIRUBIN,TOTAL 0.8 MG/DL (0.1-1.0); BLOOD UREA NITROGEN 13 MG/DL (7-18); BUN/CREATININE RATIO 14.6 (6.6-38.0); CALCIUM 8.3 MG/DL (8.5-10.1); CHLORIDE 103 MMOL/L (99-107); CREATININE 0.89 MG/DL (0.40-0.90); GLUCOSE 108 MG/DL (70-104); LIPASE 904 U/L (73-393); MAGNESIUM 1.5 MG/DL (1.5-2.4); PHOSPHORUS 1.6 MG/DL (2.3-4.5); POTASSIUM 4.5 MMOL/L (3.5-5.1); SODIUM 138 MMOL/L (135-145); TOTAL CARBON DIOXIDE 25.2 MMOL/L (24-32); TOTAL PROTEIN 7.1 G/DL (6.4-8.2); eGFR 66 ML/MIN
[2017-12-20 07:14] VITALS: BP 134/81
[2017-12-20] MEDS ORDERED: non-formulary drug (Aspirin (Aspir 81) 1 TAB) PO SCH (08:00)
[2017-12-20] MEDS: lisinopril 10 MG tablet PO SCH (08:00)
[2017-12-20] MEDS ORDERED: METHADONE HCL PO SCH (08:00)
[2017-12-20] MEDS: aspirin 81mg tablet.DR PO SCH (08:00)
[2017-12-20] MEDS ORDERED: sincalide inj 2 MCG in normal saline 50ml IV soln 50 ML IV ONE (08:00)
[2017-12-20] MEDS: furosemide 40mg tablet PO SCH (08:00)
[2017-12-20 08:12] LABS: BASOPHILS % (AUTO) 0.4 % (0-1); EOSINOPHILS % (AUTO) 2.6 % (0-6); HEMATOCRIT 25.7 % (35.0-45.0); HEMOGLOBIN 8.6 g/dl (12.0-16.0); LYMPHOCYTES % (AUTO) 31.2 % (21-51); MEAN CORPUSCULAR HEMOGLOBIN 31.4 PG (27.0-31.0); MEAN CORPUSCULAR HGB CONC 33.3 % (33.0-36.5); MEAN CORPUSCULAR VOLUME 94.3 FL (78-98); MEAN PLATELET VOLUME 8.1 FL (7.4-10.4); MONOCYTES % (AUTO) 11.6 % (2-12); NEUTROPHILS % (AUTO) 54.2 % (42-75); PLATELET COUNT 147 X10'3 (140-440); RED BLOOD COUNT 2.73 X10'6 (4.20-5.60); RED CELL DISTRIBUTION WIDTH 24.4 % (11.5-14.5); WHITE BLOOD COUNT 4.5 X10'3 (4.5-11.0)
[2017-12-20 08:13] LABS: EOSINOPHILS # (AUTO) 0.1 X10'3 (0-0.9); LYMPHOCYTES # (AUTO) 1.4 X10'3 (1.1-4.8); MONOCYTES # (AUTO) 0.5 X10'3 (0-0.9); NEUTROPHILS # (AUTO) 2.4 X10'3 (1.8-7.7)
[2017-12-20] MEDS: CADD PCA waste documentation MC PRN ×2 (09:28→16:23)
[2017-12-20 10:00] LABS: TOTAL CELLS COUNTED 100
[2017-12-20 10:01] LABS: ANISOCYTOSIS 3+; HYPOCHROMASIA 1+; PLATELET ESTIMATE NORMAL; POLYCHROMASIA 1+
[2017-12-20] MEDS: heparin, porcine 5000 units/ml vial SQ SCH ×2 (12:33→19:18)
[2017-12-20] MEDS: methadone 10mg tablet PO SCH ×2 (16:33→23:55)
[2017-12-20] MEDS: morphine 4 MG/ML inj SYRINge IV PRN ×3 (16:34→22:28)
[2017-12-20 19:00] VITALS: BP 136/88
[2017-12-20] MEDS: insulin glargine (Lantus) pen - multi-dose SQ SCH (21:00)
[2017-12-20 23:40] VITALS: BP 136/81
[2017-12-21] MEDS: LORazepam 2 mg/ml vial IV PRN ×6 (00:29→17:34)
[2017-12-21] MEDS: morphine 4 MG/ML inj SYRINge IV PRN ×3 (01:53→08:21)
[2017-12-21] MEDS: normal saline 1000ml 1,000 ML IV SCH ×3 (03:07→23:01)
[2017-12-21 07:11] LABS: BASOPHILS % (AUTO) 0.6 % (0-1); EOSINOPHILS # (AUTO) 0.2 X10'3 (0-0.9); EOSINOPHILS % (AUTO) 4.7 % (0-6); HEMATOCRIT 28.6 % (35.0-45.0); LYMPHOCYTES # (AUTO) 1.2 X10'3 (1.1-4.8); LYMPHOCYTES % (AUTO) 34.2 % (21-51); MEAN CORPUSCULAR HEMOGLOBIN 30.4 PG (27.0-31.0); MEAN CORPUSCULAR HGB CONC 31.5 % (33.0-36.5); MEAN CORPUSCULAR VOLUME 96.5 FL (78-98); MEAN PLATELET VOLUME 7.3 FL (7.4-10.4); MONOCYTES # (AUTO) 0.5 X10'3 (0-0.9); MONOCYTES % (AUTO) 12.9 % (2-12); NEUTROPHILS # (AUTO) 1.7 X10'3 (1.8-7.7); NEUTROPHILS % (AUTO) 47.6 % (42-75); PLATELET COUNT 166 X10'3 (140-440); RED BLOOD COUNT 2.96 X10'6 (4.20-5.60); RED CELL DISTRIBUTION WIDTH 24.4 % (11.5-14.5); WHITE BLOOD COUNT 3.5 X10'3 (4.5-11.0)
[2017-12-21] MEDS: heparin, porcine 5000 units/ml vial SQ SCH ×2 (07:14→19:13)
[2017-12-21] MEDS: aspirin 81mg tablet.DR PO SCH (07:15)
[2017-12-21] MEDS: lisinopril 10 MG tablet PO SCH (07:15)
[2017-12-21] MEDS: methadone 10mg tablet PO SCH ×2 (07:15→16:53)
[2017-12-21] MEDS: furosemide 40mg tablet PO SCH (07:15)
[2017-12-21 07:23] LABS: PROTHROMBIN TIME 10.4 SECONDS (9.0-12.0)
[2017-12-21 07:24] VITALS: BP 146/101
[2017-12-21 07:37] LABS: ANISOCYTOSIS 3+; HYPOCHROMASIA 1+; NUCLEATED RED BLOOD CELLS 3 /100WBC (0-0); PLATELET ESTIMATE NORMAL; POLYCHROMASIA 2+; TOTAL CELLS COUNTED 100
[2017-12-21 07:38] LABS: ALANINE AMINOTRANSFERASE 74 U/L (12-78); ALBUMIN 2.8 G/DL (3.4-5.0); ALBUMIN/GLOBULIN RATIO 0.7 (1.1-1.5); ALKALINE PHOSPHATASE 139 IU/L (46-116); AMYLASE 46 U/L (25-115); ANION GAP 11 (8-16); ASPARTATE AMINO TRANSFERASE 111 U/L (10-37); BILIRUBIN,TOTAL 0.8 MG/DL (0.1-1.0); BLOOD UREA NITROGEN 11 MG/DL (7-18); BUN/CREATININE RATIO 11.7 (6.6-38.0); CALCIUM 8.3 MG/DL (8.5-10.1); CHLORIDE 107 MMOL/L (99-107); CREATININE 0.94 MG/DL (0.40-0.90); GLUCOSE 100 MG/DL (70-104); LIPASE 613 U/L (73-393); MAGNESIUM 1.2 MG/DL (1.5-2.4); PHOSPHORUS 2.1 MG/DL (2.3-4.5); POTASSIUM 4.8 MMOL/L (3.5-5.1); SODIUM 141 MMOL/L (135-145); STOMATOCYTES 1+; TOTAL CARBON DIOXIDE 22.7 MMOL/L (24-32); eGFR 62 ML/MIN
[2017-12-21] MEDS ORDERED: potassium Cl 40MEQ/NS 500ml 500 ML IV PRN ×2 (08:30)
[2017-12-21] MEDS ORDERED: magnesium 4gm in 100ml NS 100 ML IV PRN (08:30)
[2017-12-21] MEDS ORDERED: HYDROmorphone 2mg/ml vial IV PRN (08:30)
[2017-12-21] MEDS ORDERED: potassium Cl 20 mEq SR tablet PO PRN ×2 (08:30)
[2017-12-21] MEDS ORDERED: magnesium 1gm/100ml D5W IVPB 100 ML IV PRN (08:30)
[2017-12-21] MEDS: magnesium Cl slow-release 64mg tablet PO PRN ×2 (09:22→19:51)
[2017-12-21] MEDS: HYDROmorphone 1 mg/ml syringe IV PRN ×5 (10:44→23:01)
[2017-12-21 11:24] VITALS: BP 116/88
[2017-12-21 18:40] VITALS: BP 130/88
[2017-12-21] MEDS: insulin glargine (Lantus) pen - multi-dose SQ SCH (21:00)
[2017-12-21 23:45] VITALS: BP 138/67
[2017-12-22] MEDS: methadone 10mg tablet PO SCH ×4 (00:19→23:33)
[2017-12-22] MEDS: LORazepam 2 mg/ml vial IV PRN ×3 (01:55→20:19)
[2017-12-22] MEDS: HYDROmorphone 1 mg/ml syringe IV PRN ×3 (03:07→11:08)
[2017-12-22 07:19] VITALS: BP 139/95
[2017-12-22] MEDS: aspirin 81mg tablet.DR PO SCH (07:28)
[2017-12-22] MEDS: lisinopril 10 MG tablet PO SCH (07:28)
[2017-12-22] MEDS: furosemide 40mg tablet PO SCH (07:28)
[2017-12-22] MEDS: heparin, porcine 5000 units/ml vial SQ SCH ×2 (07:29→20:19)
[2017-12-22] MEDS: normal saline 1000ml 1,000 ML IV SCH (09:02)
[2017-12-22 12:00] VITALS: BP 143/99
[2017-12-22] MEDS ORDERED: HYDROmorphone 1 mg/ml syringe IV PRN ×3 (12:00→18:25)
[2017-12-22 12:23] LABS: BASOPHILS % (AUTO) 0.8 % (0-1); EOSINOPHILS # (AUTO) 0.2 X10'3 (0-0.9); EOSINOPHILS % (AUTO) 6.3 % (0-6); HEMATOCRIT 26.6 % (35.0-45.0); HEMOGLOBIN 8.6 g/dl (12.0-16.0); LYMPHOCYTES # (AUTO) 1.2 X10'3 (1.1-4.8); LYMPHOCYTES % (AUTO) 30.8 % (21-51); MEAN CORPUSCULAR HEMOGLOBIN 30.8 PG (27.0-31.0); MEAN CORPUSCULAR HGB CONC 32.5 % (33.0-36.5); MEAN CORPUSCULAR VOLUME 94.7 FL (78-98); MEAN PLATELET VOLUME 6.6 FL (7.4-10.4); MONOCYTES # (AUTO) 0.5 X10'3 (0-0.9); MONOCYTES % (AUTO) 13.7 % (2-12); NEUTROPHILS # (AUTO) 1.8 X10'3 (1.8-7.7); NEUTROPHILS % (AUTO) 48.4 % (42-75); PLATELET COUNT 181 X10'3 (140-440); RED CELL DISTRIBUTION WIDTH 23.6 % (11.5-14.5); WHITE BLOOD COUNT 3.8 X10'3 (4.5-11.0)
[2017-12-22 12:33] LABS: PROTHROMBIN TIME 10.6 SECONDS (9.0-12.0)
[2017-12-22 12:38] LABS: ANISOCYTOSIS 3+; PLATELET ESTIMATE NORMAL; POIKILOCYTOSIS FEW; POLYCHROMASIA 1+
[2017-12-22 12:39] LABS: STOMATOCYTES 1+
[2017-12-22 12:42] LABS: ALANINE AMINOTRANSFERASE 62 U/L (12-78); ALBUMIN 2.7 G/DL (3.4-5.0); ALBUMIN/GLOBULIN RATIO 0.7 (1.1-1.5); ALKALINE PHOSPHATASE 136 IU/L (46-116); AMYLASE 37 U/L (25-115); ANION GAP 12 (8-16); ASPARTATE AMINO TRANSFERASE 94 U/L (10-37); BILIRUBIN,TOTAL 0.9 MG/DL (0.1-1.0); BLOOD UREA NITROGEN 6 MG/DL (7-18); BUN/CREATININE RATIO 6.5 (6.6-38.0); CALCIUM 7.9 MG/DL (8.5-10.1); CHLORIDE 108 MMOL/L (99-107); CREATININE 0.93 MG/DL (0.40-0.90); GLUCOSE 113 MG/DL (70-104); LIPASE 509 U/L (73-393); MAGNESIUM 1.1 MG/DL (1.5-2.4); PHOSPHORUS 2.4 MG/DL (2.3-4.5); SODIUM 141 MMOL/L (135-145); TOTAL CARBON DIOXIDE 20.7 MMOL/L (24-32); TOTAL PROTEIN 6.8 G/DL (6.4-8.2); eGFR 63 ML/MIN
[2017-12-22 12:44] LABS: POTASSIUM 4.3 MMOL/L (3.5-5.1)
[2017-12-22] MEDS: ipratropium/albuterol 3ml nebule NEB SCH ×2 (14:32→21:10)
[2017-12-22] MEDS: magnesium Cl slow-release 64mg tablet PO PRN ×2 (16:02→23:32)
[2017-12-22 19:00] VITALS: BP 152/98
[2017-12-22] MEDS ORDERED: gabapentin 400mg capsule PO SCH (21:00)
[2017-12-22] MEDS: insulin glargine (Lantus) pen - multi-dose SQ SCH (21:00)
[2017-12-23] VITALS: BP 148/90
[2017-12-23] MEDS: ipratropium/albuterol 3ml nebule NEB SCH ×2 (03:00→08:54)
[2017-12-23] MEDS: LORazepam 2 mg/ml vial IV PRN (05:02)
[2017-12-23 05:28] LABS: PROTHROMBIN TIME 10.6 SECONDS (9.0-12.0)
[2017-12-23 05:37] LABS: ALANINE AMINOTRANSFERASE 61 U/L (12-78); ALBUMIN 2.8 G/DL (3.4-5.0); ALBUMIN/GLOBULIN RATIO 0.7 (1.1-1.5); ALKALINE PHOSPHATASE 144 IU/L (46-116); AMYLASE 32 U/L (25-115); ANION GAP 12 (8-16); ASPARTATE AMINO TRANSFERASE 91 U/L (10-37); BILIRUBIN,TOTAL 1.2 MG/DL (0.1-1.0); BLOOD UREA NITROGEN 7 MG/DL (7-18); BUN/CREATININE RATIO 7.9 (6.6-38.0); CHLORIDE 105 MMOL/L (99-107); CREATININE 0.89 MG/DL (0.40-0.90); GLUCOSE 83 MG/DL (70-104); LIPASE 385 U/L (73-393); MAGNESIUM 1.2 MG/DL (1.5-2.4); PHOSPHORUS 2.9 MG/DL (2.3-4.5); POTASSIUM 3.9 MMOL/L (3.5-5.1); SODIUM 139 MMOL/L (135-145); TOTAL CARBON DIOXIDE 21.8 MMOL/L (24-32); TOTAL PROTEIN 7.1 G/DL (6.4-8.2); eGFR 66 ML/MIN
[2017-12-23 07:40] VITALS: BP 131/92
[2017-12-23] MEDS: aspirin 81mg tablet.DR PO SCH (07:57)
[2017-12-23] MEDS: lisinopril 10 MG tablet PO SCH (07:57)
[2017-12-23] MEDS: furosemide 40mg tablet PO SCH (07:57)
[2017-12-23] MEDS: methadone 10mg tablet PO SCH (07:57)
[2017-12-23] MEDS: heparin, porcine 5000 units/ml vial SQ SCH (07:57)
[2017-12-23] MEDS ORDERED: oxyCODONE IR 5mg (immed. release) tablet PO PRN (08:15)
[2017-12-23] MEDS ORDERED: methadone 10mg tablet PO ONE (10:05)
[2017-12-23] MEDS ORDERED: MAGN400C PO (10:34)
[2017-12-23] MEDS ORDERED: GABA-532 PO (10:34)
[2017-12-23 12:24] VITALS: BP 136/96
== END 2017-12-23 14:26 | disposition home or self-care (01) | DRG 282 ==
LOC: ER 21:53 → ED HOLD 12-18 05:29 → SUR 3N 12-18 07:10
PROVIDERS: ADMIT Internal Medicine; ATTEND Family Medicine
PROC: CF141ZZ Planar Nuclear Medicine Imaging of Gallbladder using Technetium 99m (Tc-99m) (ICD-10-PCS; principal; 2017-12-20)
DX: K85.20 Alcohol induced acute pancreatitis without necrosis or infection (principal); F10.231 Alcohol dependence with withdrawal delirium; N17.9 Acute kidney failure, unspecified; I50.9 Heart failure, unspecified; I11.0 Hypertensive heart disease with heart failure; E87.1 Hypo-osmolality and hyponatremia; E11.9 Type 2 diabetes mellitus without complications; D64.9 Anemia, unspecified; Z68.41 Body mass index [BMI] 40.0-44.9, adult; E83.42 Hypomagnesemia; E86.0 Dehydration; G89.29 Other chronic pain; I25.10 Atherosclerotic heart disease of native coronary artery without angina pectoris; J43.9 Emphysema, unspecified; B19.20 Unspecified viral hepatitis C without hepatic coma; K86.0 Alcohol-induced chronic pancreatitis; K74.60 Unspecified cirrhosis of liver; K76.0 Fatty (change of) liver, not elsewhere classified; M06.9 Rheumatoid arthritis, unspecified; M79.7 Fibromyalgia; Z79.82 Long term (current) use of aspirin; Z79.84 Long term (current) use of oral hypoglycemic drugs; Z79.899 Other long term (current) drug therapy; Z88.8 Allergy status to other drugs, medicaments and biological substances; Z80.3 Family history of malignant neoplasm of breast; Z85.72 Personal history of non-Hodgkin lymphomas; Z87.820 Personal history of traumatic brain injury; Z87.891 Personal history of nicotine dependence; Z90.710 Acquired absence of both cervix and uterus; Z98.82 Breast implant status; Z80.0 Family history of malignant neoplasm of digestive organs; Z86.14 Personal history of Methicillin resistant Staphylococcus aureus infection
CPT/HCPCS: 36415; 71045; 74176; 74181; 76700; 78227; 80053; 81001; 81025; 82150; 82948; 83036; 83690; 83735; 84100; 85025; 85610; 87070; 87088; 94640; 94760; 96361; 96374; 96375; 96376; 99285; A9537; J1170; J1644; J1815; J2060; J2270; J2405; J2805; J3411; J3475; J7030; J7040

== ENCOUNTER 2019-01-24 15:32 | Emergency (ER) | payer MEDICAID ==
[~2019-01-24] VITALS: Ht 157.5 cm; Wt 90.9 kg
[~2019-01-24 15:32] MED LIST changes: +ASPI-611 PO; -ASPI81TA52 PO; -ATI0.5T PO; -CHLO25CA10 PO; +FOLI0.4T2 PO; -FOLI1TAB16 PO; +FURO-149 PO; +GABA-532 PO; +MAGN400C PO; +METF500T PO; -METF500T6 PO; -METH-603 PO; +METH10OR11 PO; -NAPR-56 PO; -ONDA8TAB9 PO; -PANT20TA3 PO; -THI100T PO
[2019-01-24 16:17] LABS: BASOPHILS # (AUTO) 0.1 X10'3 (0-0.2); BASOPHILS % (AUTO) 1.4 % (0-1); EOSINOPHILS # (AUTO) 0.2 X10'3 (0-0.9); EOSINOPHILS % (AUTO) 2.6 % (0-6); HEMATOCRIT 33.7 % (35.0-45.0); HEMOGLOBIN 10.7 g/dl (12.0-16.0); LYMPHOCYTES % (AUTO) 24.5 % (21-51); MEAN CORPUSCULAR HEMOGLOBIN 25.9 PG (27.0-31.0); MEAN CORPUSCULAR HGB CONC 31.7 g/dL (33.0-36.5); MEAN CORPUSCULAR VOLUME 81.9 FL (78-98); MEAN PLATELET VOLUME 6.7 FL (7.4-10.4); MONOCYTES # (AUTO) 0.7 X10'3 (0-0.9); MONOCYTES % (AUTO) 8.1 % (2-12); NEUTROPHILS # (AUTO) 5.2 X10'3 (1.8-7.7); NEUTROPHILS % (AUTO) 63.4 % (42-75); PLATELET COUNT 178 X10'3 (140-440); RED BLOOD COUNT 4.11 X10'6 (4.20-5.60); RED CELL DISTRIBUTION WIDTH 24.2 % (11.5-14.5); WHITE BLOOD COUNT 8.2 X10'3 (4.5-11.0)
[2019-01-24 16:29] LABS: PARTIAL THROMBOPLASTIN TIME 25 SECONDS (22-32)
[2019-01-24 16:32] LABS: ALANINE AMINOTRANSFERASE 97 U/L (12-78); ALBUMIN 3.1 G/DL (3.4-5.0); ALBUMIN/GLOBULIN RATIO 0.6 (1.1-1.5); ALKALINE PHOSPHATASE 301 IU/L (46-116); ANION GAP 9 (8-16); BILIRUBIN,TOTAL 0.8 MG/DL (0.1-1.0); BLOOD UREA NITROGEN 4 MG/DL (7-18); CALCIUM 8.1 MG/DL (8.5-10.1); CHLORIDE 98 MMOL/L (99-107); CREATININE 0.67 MG/DL (0.40-0.90); GLUCOSE 374 MG/DL (70-104); SODIUM 134 MMOL/L (135-145); TOTAL CARBON DIOXIDE 26.9 MMOL/L (24-32); TOTAL PROTEIN 8.3 G/DL (6.4-8.2); eGFR > 90 ML/MIN
[2019-01-24 16:34] LABS: POTASSIUM 4.9 MMOL/L (3.5-5.1)
[2019-01-24 16:42] LABS: ASPARTATE AMINO TRANSFERASE 178 U/L (10-37)
--- NOTE | 2019-01-24 16:44 | NUR ---
EDU STOKES [phone]
[2019-01-24] MEDS ORDERED: furosemide 10 MG/1 ML 10ml inj IV ONE (16:50)
[2019-01-24] MEDS ORDERED: potassium chloride 8mEq ER tablet PO ONE (16:50)
--- NOTE | 2019-01-24 17:09 | NUR ---
ATTEMPT X 3 FOR IV ACCESS WITH FLASH BACK ALL THREE TIMES BUT UNSUCESSFUL ATTEMPTS
[2019-01-24 17:28] LABS: CLARITY,URINE CLOUDY (Clear); COLOR,URINE YELLOW (Yellow); GLUCOSE, URINE >=1000 mg/dl (Neg); KETONES,URINE NEGATIVE (Neg); LEUKOCYTE ESTERASE ,URINE NEGATIVE (Neg); NITRITES, URINE NEGATIVE (Neg); OCCULT BLOOD,URINE SMALL (Neg); PH,URINE 6.5 (4.8-8.0); PROTEIN,URINE NEGATIVE (Neg); URINE HCG NEGATIVE (NEG)
[2019-01-24 17:34] LABS: LIPASE 251 U/L (73-393)
[2019-01-24 17:43] LABS: UA COLLECTION TYPE CLN CATCH MIDSTREAM
[2019-01-24 17:44] LABS: BACTERIA,URINE NONE SEEN /HPF (Neg); MUCUS STRANDS NONE SEEN /LPF (Neg); RBC,URINE NONE SEEN /HPF (0-2); SQUAMOUS EPITHELIAL CELL,UR FEW /LPF (FEW); STARCH,URINE MANY /HPF (NEGATIVE); WBC,URINE 0-4 /HPF (0-4); YEAST MODERATE /HPF (NEGATIVE)
[2019-01-24] MEDS ORDERED: POTA8TAB8 PO (17:52)
[2019-01-24] MEDS ORDERED: FURO-149 PO (17:52)
[2019-01-24] MEDS ORDERED: METF500T PO (17:52)
[2019-01-24] MEDS ORDERED: ipratropium/albuterol 3ml nebule NEB ONE (17:55)
[2019-01-24] MEDS ORDERED: ALBU8.5H8 IH (17:56)
[2019-01-24] MEDS ORDERED: ipratropium/albuterol 3ml nebule ONE (18:03)
--- NOTE | 2019-01-24 18:06 | NUR ---
ACCIDENTLY DROPPED MEDICATION (DUONEB) ON FLOOR, PULLED ANOTHER DUONEB FROM STOCK IN [facility].
[2019-01-24] MEDS ORDERED: furosemide 20MG tablet PO ONE (18:10)
[2019-01-24 18:18] VITALS: BP 173/109
== END 2019-01-24 18:23 | disposition home or self-care (01) ==
LOC: ER 15:32
DX: D50.9 Iron deficiency anemia, unspecified (principal); F10.20 Alcohol dependence, uncomplicated; B19.20 Unspecified viral hepatitis C without hepatic coma; R60.9 Edema, unspecified; J98.01 Acute bronchospasm; E11.9 Type 2 diabetes mellitus without complications; I10 Essential (primary) hypertension; Z86.69 Personal history of other diseases of the nervous system and sense organs; Z86.14 Personal history of Methicillin resistant Staphylococcus aureus infection; Z90.710 Acquired absence of both cervix and uterus; Z98.890 Other specified postprocedural states; Z88.8 Allergy status to other drugs, medicaments and biological substances; Z79.82 Long term (current) use of aspirin; Z79.899 Other long term (current) drug therapy; Y90.9 Presence of alcohol in blood, level not specified
CPT/HCPCS: 36415; 71045; 74176; 80053; 81001; 81025; 83690; 83880; 84484; 85025; 85610; 85730; 93005; 94640; 94760; 99284

== ENCOUNTER 2019-07-05 18:40 | Emergency (ER) | payer MEDICAID ==
[~2019-07-05] VITALS: Ht 157.5 cm; Wt 102.9 kg
[~2019-07-05 18:40] MED LIST changes: +ALBU8.5H8 IH; +POTA8TAB8 PO
[2019-07-05] MEDS ORDERED: methylPREDNISolone sod succ 125mg/2ml vial IV ONE (20:20)
[2019-07-05] MEDS ORDERED: furosemide 40mg/4ml inj IV ONE (20:20)
--- NOTE | 2019-07-05 20:47 | NUR ---
ATTEMPTED EJ RIGHT SIDE X 2 BUT THE SCAR TISSUE IS DIFFICULT TO PENETRATE AND THEN I PUSH DOWN ON THE NEEDLE IT OBSCURES THE VISION OF THE ULTRASOUND AND YOU CAN'T SEE THE VEIN. ALSO WENT I APPLY PRESSURE TO PUSH THE NEEDLE THE VESSELS MOVES AND SO WHEN I GET THE ULTRASOUND ON IT AGAIN, THE VEIN IS NO WHERE NEAR MY NEEDLE.
[2019-07-05] MEDS ORDERED: methylPREDNISolone sod succ 125mg/2ml vial IM ONE (20:50)
[2019-07-05] MEDS ORDERED: furosemide 20MG tablet PO ONE (20:50)
[2019-07-05 21:16] VITALS: BP 147/100
[2019-07-05] MEDS ORDERED: POLY17PO10 PO (22:00)
== END 2019-07-05 22:09 | disposition left against medical advice (07) ==
LOC: ER 18:42
DX: K59.00 Constipation, unspecified (principal); R10.84 Generalized abdominal pain; F10.10 Alcohol abuse, uncomplicated; R16.0 Hepatomegaly, not elsewhere classified; I10 Essential (primary) hypertension; E11.9 Type 2 diabetes mellitus without complications; M19.90 Unspecified osteoarthritis, unspecified site; F17.200 Nicotine dependence, unspecified, uncomplicated; Z86.69 Personal history of other diseases of the nervous system and sense organs; Z86.14 Personal history of Methicillin resistant Staphylococcus aureus infection; Z90.710 Acquired absence of both cervix and uterus; Z98.890 Other specified postprocedural states; Z88.8 Allergy status to other drugs, medicaments and biological substances; Z79.82 Long term (current) use of aspirin; Z79.84 Long term (current) use of oral hypoglycemic drugs; Z79.899 Other long term (current) drug therapy; Y90.9 Presence of alcohol in blood, level not specified
CPT/HCPCS: 71045; 74176; 93005; 96372; 99284; J2930